=== PATIENT | female | born 1965 | race Caucasian/White ===

== ENCOUNTER → 2016-12-09 | Outpatient (CLI) | payer OTHER ==
--- NOTE | 2016-12-09 14:28 | MA ---
Screening Digital Mammogram With iCAD Analysis Reason for Examination: Routine screening. Patient has had a benign right breast stereotactic biopsy. Breast parenchymal density: Type B; Scattered fibroglandular densities. Technique: Four views of each breast are obtained including CC and oblique lateral Avril (implant di splaced) and non-Avril (implant not displaced) views. Images were reviewed using the iCAD computer a ided detection system. Comparison: October 2015, November 2011, May 2009.. Findings: Breast implants are in place bilaterally. iCAD is reviewed. There has been decrease in the number of benign right breast microcalcifications consistent with interval biopsy. A PinkelStaros biopsy sit e marker is present at the site. No suspicious areas are identified. There has been no significant ch diamond in the appearance of either breast. Breast implants diminish the sensitivity of mammography. Impression: Negative mammogram. BI-RADS 1. Recommendation: Routine screening is recommended in one year as long as physical examination is negat aury. [facility] will send a result letter to the patient. Negative mammography should not preclude additional workup of a clinically suspicious finding. The patient's information is entered into a reminder system with a target due date for her next mammo gram.
== END ==
LOC: CIMAGING 10:42
DX: Z12.31 Encounter for screening mammogram for malignant neoplasm of breast (principal)
CPT/HCPCS: G0202